=== PATIENT | male | born 1965 | race Two or more races ===

== ENCOUNTER 2025-02-05 23:34 | Emergency (ER) | payer BC ==
[~2025-02-05] VITALS: Ht 182.9 cm; Wt 90.7 kg
[2025-02-05] MEDS ORDERED: AMLODIPINE-OLM1 EAC2 PO (23:43)
[2025-02-05] MEDS ORDERED: TOPROL XL25 M1 PO (23:43)
[2025-02-05] MEDS ORDERED: QBRELIS1 MG/1 ML PO (23:43)
[2025-02-06 00:51] LABS: HEMATOCRIT 43.2 % (39.0-48.0); HEMOGLOBIN 14.9 g/dL (13-16.00); MEAN CELL VOLUME 89.1 fL (80.0-100.00); MEAN CORPUSCULAR HEMOGLOBIN 30.7 pg (27.00-32.0); MEAN CORPUSCULAR HGB CONC 34.4 g/dl (32.0-36.0); PLATELET COUNT 245 K/uL (150-450); RED BLOOD COUNT 4.84 M/uL (4.00-6.00); RED CELL DISTRIBUTION WIDTH 14.1 % (11.5-14.5)
[2025-02-06 00:59] LABS: AMYLASE 47 U/L (25-115); LIPASE 60 U/L (13-75)
[2025-02-06 01:06] LABS: ALBUMIN 3.8 gm/dL (3.4-5.0); BILIRUBIN TOTAL 0.25 mg/dL (0.3-1.2); CALCIUM 9.8 mg/dL (8.5-10.1); CREATININE SERUM 0.85 mg/dL (0.70-1.30); GFR 91.94; GLOBULINA 3.6 G/DL (2.4-3.5); POTASSIUM 3.94 mEq/L (3.5-5.1); TOTAL PROTEIN 7.4 gm/dL (6.4-8.2)
== END 2025-02-06 03:48 | disposition home or self-care (01) ==
LOC: ER 23:34
PROVIDERS: General Practice
DX: I10 Essential (primary) hypertension (principal); R07.9 Chest pain, unspecified